=== PATIENT | male | born 1995 | race Caucasian/White ===

== ENCOUNTER 2024-08-02 08:35 | Emergency (ER) | payer BC, SELFPAY ==
[2024-08-02 08:36] VITALS: BP 161/85; PULSE 106; RESP 17; TEMP 37.7; O2SAT 98; BMI 33.0
[2024-08-02 08:39] VITALS: BMI 33.0
[2024-08-02 08:44] LABS: Coronavirus 19, PCR Not Detected (NotDetected); Influenza B, PCR Not Detected (NotDetected)
--- NOTE | 2024-08-02 08:47 | PC.NURSE ---
dr sampson at bedside
[2024-08-02] MEDS: IBUPROFEN 400 MG TABLET 800 MG PO (08:52)
[2024-08-02] MEDS: ONDANSETRON 4MG ODT 4 MG SL (08:52)
[2024-08-02] MEDS: ACETAMINOPHEN 500MG TAB 1000 MG PO (08:52)
--- NOTE | 2024-08-02 09:14 | PC.NURSE ---
ROUNDED ON THE PT. THE PT VOICES THAT HE DOES NOT NEED ANYTHING AT THIS TIME. CALL LIGHT IS WITHIN REACH OF THE PT.
[2024-08-02 09:23] LABS: Influenza A, PCR Detected (NotDetected)
--- NOTE | 2024-08-02 09:31 | PC.NURSE ---
dr sampson at bedside to update pt
[2024-08-02 09:32] VITALS: BP 155/85; PULSE 90; RESP 16; TEMP 37.1; O2SAT 98
--- NOTE | 2024-08-02 09:51 | [facility].EDGENADL ---
Discharge Plan Disposition Patient Disposition: Home, Self-Care Condition: Good Prescriptions Prescriptions: New jjlxiebpkybygmk-djgehaelr-UP [Bromfed DM] 2-30-10 mg/5 mL syrup 5 ml PO Q6H PRN (Reason: cold symptoms) Qty: 118 0RF ondansetron 4 mg tablet,disintegrating 4 mg PO Q8H PRN (Reason: nausea and vomiting) 4 Days Qty: 12 0RF Referrals Follow up/Referrals: Provider,Referral, [Primary Care Provider] - See instructions Activity Restrictions/Add. Instructions Additional Instructions/Restrictions: You were evaluated in the emergency department today. Please warehouse order picker your prescriptions and to take as needed for symptoms. Take Tylenol and ibuprofen every 4-6 hours as needed for pain/fever. Make sure you stay hydrated. Follow-up closely with your primary care provider. Return to the emergency department for new or worsening symptoms. Clinical Impressions Clinical Impression: Influenza A Stand Alone Forms Stand Alone Forms: Work/School Release Instructions Patient Instructions: DI for Viral Upper Respiratory Infection -- Adult, DI for Fever (Symptom) -- Adult Print Language Print Language: Swedish Discharge ED Provider: Alexsandra Gilmore General Adult HPI General Chief complaint: Fever Stated complaint: flu exposure ba fever 102 cough diahrea Time Seen by Provider: 08/02/24 08:39 Mode of Arrival: Family Vehicle Source of Information: Patient Limitations: No Limitations Description of Symptoms (Recalled from ER Triage Doc. by RN): Pt c/o body aches, nausea, fever, chills, dry cough, and flu exsposure. States he took tylenol & motrin yesterday but the fever came back, he has not taken more meds. Denies any dyspnea or SOA. History of Present Illness HPI narrative: This patient is a 29-year-old male who denies any past medical history presenting to the emergency department for evaluation with concern for fever, body aches, nausea, diarrhea, chills, dry cough, and overall just feeling unwell which started yesterday. He took Tylenol and Motrin yesterday but symptoms came back today. He notes he was exposed to flu recently. No other concerns noted at this time. Related Data Previous Rx's ?Medication ?Instructions ?Recorded hgkyrvqcepdvalm-eafbghrqoahgkso-ZI 5 ml PO Q6H PRN cold symptoms #118 08/02/24 2 mg-30 mg-10 mg/5 mL oral syrup mL (Bromfed DM) ondansetron 4 mg disintegrating 4 mg PO Q8H PRN nausea and 08/02/24 tablet vomiting 4 days #12 tabs Allergies Allergy/AdvReac Type Severity Reaction Status Date / Time No Known Allergies (NO KNOWN Allergy Mild Verified 08/02/24 08:48 ALLERGIES) [facility] Disclaimer: The information contained in this section may have been updated after the patient was seen, as this information can be updated by other users. Social History Smoking Status: Never smoker alcohol intake: never current occupational status: employed Travel in the last 8 weeks: None ROS Obtained: Yes All systems reviewed & no additional complaints except as documented Physical Exam General General appearance: alert and in no apparent distress Head Head exam: atraumatic and normocephalic Eye Eye exam: Present normal appearance, PERRL and EOMI ENT ENT exam: Present normal exam, normal oropharynx, mucous membranes moist and normal external ear exam Neck Neck exam: Present normal inspection, full ROM and trachea midline; Absent tenderness Chest Chest inspection: Present normal inspection and symmetric chest wall rise; Absent tenderness Respiratory Respiratory exam: Present normal lung sounds bilaterally; Absent respiratory distress, wheezes, stridor or accessory muscle use Cardiovascular Cardiovascular exam: Present regular rate and normal rhythm Abdominal Exam Abdominal exam: Present soft; Absent distention, tenderness or guarding Extremities Exam Extremities exam: Present normal inspection, full ROM and normal capillary refill; Absent tenderness or edema Back Exam Back exam: Present normal inspection and full ROM; Absent tenderness Neurological Exam Neurological exam: Present alert, oriented X3, CN II-XII intact and normal gait; Absent motor sensory deficit Psychiatric Psychiatric exam: Present normal affect and normal mood Skin Skin exam: Present warm and dry Medical Decision Making Medical Records Medical records reviewed: Yes I reviewed the patient's medical records. Screening: Per USPSTF and CDC recommendations, given the prevalence of disease in our region, it is our hospital?s policy to screen for HIV and viral Hepatitis for all patients aged 18 and over and those with ongoing risk factors. Sixto Inquiry Pt receiving controlled substance: No Vital Signs: 08/02/24 08:36 08/02/24 09:32 Temperature 99.9 F H 98.8 F Temperature Source Oral Oral Pulse Rate 90 Pulse Rate [Right] 106 H Respiratory Rate 17 16 Blood Pressure 155/85 H Blood Pressure [Right Arm] 161/85 H Blood Pressure Mean [Right Arm] 110 Blood Pressure Source Automatic Cuff Blood Pressure Source [Right Arm] Automatic Cuff 02 Sat by Pulse Oximetry 98 Oxygen Delivery Method Room Air Room Air Lab Data Lab results reviewed: Yes I reviewed the patient's lab results. Lab Results 08/02/24 08:40: SARS-CoV-2 (PCR) Not detected, Influenza A Untype (PCR) Detected A, Influenza Type B (PCR) Not detected Orders (Tests/Meds): ED MEDICATIONS Discontinued Medications Generic Name Dose Route Start Last Admin Trade Name Freq PRN Reason Stop Dose Admin Acetaminophen 1,000 mg 08/02/24 08:42 08/02/24 08:52 Acetaminophen 500mg Tab PO 08/02/24 08:43 1,000 mg ONCE ONE Administration Ibuprofen 800 mg 08/02/24 08:42 08/02/24 08:52 Ibuprofen 400 Mg Tablet PO 08/02/24 08:43 800 mg ONCE ONE Administration Ondansetron HCl 4 mg 08/02/24 08:42 08/02/24 08:52 Ondansetron 4mg Odt SL 08/02/24 08:43 4 mg ONCE ONE Administration ORDERS Category Date Time Status Rapid PCR Covid and Flu A/B Stat Lab 08/02/24 08:40 Completed Medical Decision Narrative: In summary, this patient is a 29-year-old man presenting to the Emergency Department for evaluation of fever, cough, congestion, nausea, body aches, diarrhea. Differential diagnoses considered include but are not limited to viral syndrome, influenza, pneumonia, gastroenteritis. Ruling out the most morbid conditions drove assessment. On exam, the patient is very well-appearing with reassuring cardiopulmonary exam and abdominal exam. At this time, I feel he likely has viral etiology such as flu. Viral swab was sent. Patient was given oral Tylenol, ibuprofen, and Zofran for symptomatic improvement. I considered obtaining imaging such as chest x-ray as well as obtaining basic lab evaluation, however based on reassuring history and exam I do not feel this is indicated as it would likely not global director air and climate change. Patient did test positive for flu A, and at this time I feel he is appropriate for discharge home with prescriptions for Bromfed and Zofran as well as instructions for supportive management. Strict return precautions were given and he was discharged after all questions were answered. Critical Care Critical Care Time Critical Care Time: No
== END 2024-08-02 09:33 | disposition home or self-care (01) ==
PROVIDERS: Emergency Provider Emergency Medicine
DX: J10.1 Influenza due to other identified influenza virus with other respiratory manifestations (principal); R50.9 Fever, unspecified; R05.9 Cough, unspecified; R19.7 Diarrhea, unspecified; R11.0 Nausea; Z20.828 Contact with and (suspected) exposure to other viral communicable diseases
CPT/HCPCS: 87636; 99283; Q0162